=== PATIENT | female | born 1955 | race Caucasian/White ===

== ENCOUNTER 2016-09-12 14:48 | Emergency (ER) | payer OTHER ==
[2016-09-12 15:00] VITALS: BP 137/87; PULSE 70; RESP 18; TEMP 97.7; O2SAT 97
--- NOTE | 2016-09-12 15:00 | UCPHY ---
H & P Patient Type: New HPI/ROS: HPI CHIEF COMPLAINT: Left foot pain x6 months HISTORY OF PRESENT ILLNESS: This patient very pleasant 61-year-old female denies any significant medical history or surgical history she presents to urgent care with left foot pain x6 months. States he went for a bike ride yesterday and developed extreme pain in the bottom of her left foot plantar region heel. She states she thinks she has plantar fasciitis she has she does have a splint that she wears at night and has been doing exercises but it has not subsided her pain. She has never seen a counter waitress/waiter for this. She presents to the urgent care today as she has ongoing worsening pain. Requesting an x- ray. Past Medical History: Plantar fasciitis Past Surgical History: no significant surgical history Social History: Denies daily use drugs alcohol tobacco products Family History: Noncontributory ROS REVIEW OF SYSTEMS: A comprehensive 10 point review of systems is otherwise negative aside from elements mentioned in the history of present illness. Exam Constitutional triage nursing summary reviewed, vital signs reviewed, awake/ alert. Eyes normal conjunctivae and sclera, EOMI, PERRLA. HENT normal inspection, atraumatic, moist mucus membranes, no epistaxis, neck supple/ no meningismus, no raccoon eyes. Respiratory clear to auscultation bilaterally, normal breath sounds, no respiratory distress, no wheezing. Cardiovascular rate normal, regular rhythm, no murmur, no edema, distal pulses normal. Gastrointestinal soft, non-tender, no rebound, no guarding, normal bowel sounds, no distension, no pulsatile mass. Genitourinary no CVA tenderness. Musculoskeletal left foot: neurovascular intact good DP, good cap refill, sensation intact, tender palpation over the plantar insert of the heel, otherwise unremarkable exam no midline vertebral tenderness, full range of motion, no calf swelling, no tenderness of extremities, no meningismus, good pulses, neurovascularly intact. Skin pink, warm, & dry, no rash, skin atraumatic. Neurologic awake, alert and oriented x 3, AAOx3, moves all 4 extremities equally, motor intact, sensory intact, CN II-XII intact, normal cerebellar, normal vision, normal speech. Psychiatric normal mood/affect. Heme/Lymph/Immune no lymphadenopathy. Differential Diagnosis: Includes but is not limited to in a particular order: plantar fasciitis, tendinitis, bony abnormality, fracture, stress fracture Medical Decision Making: plan for this patient x-ray of left foot to rule out fracture, I do recommend she follows up with Podiatry takes anti-inflammatories has appropriate shoe wear, wears a nighttime splint for plantar fasciitis. Re-evaluation: ED x-ray: LEFT FOOT negative for acute fracture. Source: Patient - Family History Significant Family History: No pertinent family hx Constitutional: Initial Vital Signs Temperature (C) 36.5 C 09/12/16 14:57 Heart Rate 70 09/12/16 14:57 Respiratory Rate 18 09/12/16 14:57 Blood Pressure 137/87 H 09/12/16 14:57 O2 Sat (%) 97 09/12/16 14:57 O2 Delivery Mode Room Air Allergies/Adverse Reactions: No Known Allergies Allergy (Unverified 09/12/16 14:57) Home Medications: Medication Instructions Recorded Ibuprofen [Motrin (*)] 800 mg PO Q6-8PRN #7 tab 09/12/16 Departure - Departure Disposition: Home, Routine, Self-Care Clinical Impression: Plantar fasciitis Condition: Good Instructions: Plantar Fasciitis (ED), Plantar Fasciitis Exercises (ED) Additional Instructions: 1. Please ice your foot. 2. Take anti-inflammatory pain medicine for pain control. 3. I do recommend you follow up with Podiatry. Referrals: Amira Gupta DO [Primary Care Provider] - As per Instructions Kita Sharma DPM [Doctor of Podiatric Medicine] - As per Instructions Prescriptions: Ibuprofen [Motrin (*)] 800 mg PO Q6-8PRN #7 tab - PQRS PQRS Measurement: n/a
== END 2016-09-12 15:42 | disposition home or self-care (01) ==
LOC: CED 14:48
DX: M72.2 Plantar fascial fibromatosis (principal)
CPT/HCPCS: 73630-PO; 99204-PO; G0463-PO

== ENCOUNTER → 2017-03-21 | Outpatient (CLI) | payer OTHER | LOC: FIMAGING 17:48 | PROVIDERS: ATTEND Podiatrist | DX: I82.402 Acute embolism and thrombosis of unspecified deep veins of left lower extremity (principal) ==

== ENCOUNTER → 2017-04-24 | Outpatient (CLI) | payer OTHER | LOC: FIMAGING 08:55 | PROVIDERS: ATTEND Podiatrist | DX: M89.8X7 Other specified disorders of bone, ankle and foot (principal) | CPT/HCPCS: A9503 ==